=== PATIENT | female | born 1950 | race Caucasian/White ===

== ENCOUNTER → 2019-02-24 10:41 | Outpatient (CLI) | payer MEDICARE, SELFPAY ==
--- NOTE | 2019-02-24 | DI.MRI.S_ITS ---
PROCEDURE: MR KNEE LT WO CON INDICATIONS: Bilateral primary osteoarthritis of knee TECHNIQUE: Noncontrast sagittal PD fast spin echo and T2 fast spin echo with fat saturation, sagittal 3-D FLASH with fat saturation; coronal T1 spin echo and PD fast spin echo with fat saturation, and axial PD fast spin echo with fat saturation through the knee. COMPARISON: [facility] [place], CR, XR KNEE ARTHRITIC SERIES BI, 02/17/2019, 12:59. FINDINGS: Image quality: Excellent. Menisci: There is medial meniscal extrusion. There is severe degenerative tear of the body and posterior horn of the medial meniscus. The lateral meniscus demonstrates normal morphology and internal signal. The meniscal root ligaments appear intact. Cruciate ligaments: There is chronic tear/scarring or mucoid degeneration of anterior cruciate ligament. The posterior cruciate ligament appears intact. Medial structures: The medial collateral ligament appears intact. The semimembranosus tendon insertionsand meniscocapsular junction appear intact. Visualized portions of the pes anserinus tendons appear normal. No abnormal bursal fluid. Lateral structures: The lateral collateral ligament and the biceps femoris tendon appear intact. The popliteus tendon appears normal. Iliotibial band appears normal. Anterior structures: The quadriceps and patellar tendons appear intact. Patellar alignment is normal. No femoral trochlear dysplasia or ventral trochlear prominence. No edema in the infrapatellar fat pad. Bones and cartilage: No bone marrow contusions or fractures. There is severe cartilage thinning with near denuded articular surface in the medial femorotibial compartment. There is mild to moderate cartilage thinning and fibrillation in the lateral femorotibial compartment and patellofemoral compartment. Joint space: There is moderate knee joint fluid. Tiny Atkinson's cyst. Normal appearing synovial plicae are incidentally noted. IMPRESSION: 1. Medial meniscal extrusion with severe degenerative tear of the body and posterior horn. 2. Chronic tear/scarring versus mucoid degeneration of the anterior cruciate ligament. 3. Severe cartilage loss with [id number] articular surface the medial femorotibial compartment. 4. Moderate knee joint effusion. Dictated by: Esdras Jones M.D. on 02/24/2019 at 11:47 Approved by: Esdras Jones M.D. on 02/24/2019 at 11:56
== END ==
PROVIDERS: PCP Physician Assistant Medical; Visit Provider Orthopaedic Surgery
DX: M17.0 Bilateral primary osteoarthritis of knee (principal); M23.222 Derangement of posterior horn of medial meniscus due to old tear or injury, left knee; M23.232 Derangement of other medial meniscus due to old tear or injury, left knee; M25.462 Effusion, left knee
CPT/HCPCS: 73721

== ENCOUNTER 2019-04-01 05:44 | Inpatient (IN) | payer MEDICARE, SELFPAY ==
[2019-03-25 08:48] VITALS: BMI 40.1
[2019-04-01] VITALS (21 sets, daily range): BP systolic 99–138; BP diastolic 54–73; PULSE 60–83; RESP 14–20; TEMP 36.3–37.1; O2SAT 88–98; BMI 40.1
--- NOTE | 2019-04-01 06:50 | DI.RAD.S_ITS ---
PROCEDURE: XR KNEE LT 1TO2V INDICATIONS: post op films TECHNIQUE: 2 view(s) of the knee acquired. COMPARISON: [facility] [place], XR KNEE ARTHRITIC SERIES BI, 02/17/2019, 12:59. [facility] [place], NICOLE, XR BONE LENGTH SCANOGRAM, 02/24/2019, 11:17. [facility], MR, MR KNEE LT WO CON, 02/24/2019, 10:53. FINDINGS: Bones: Patient is status post knee joint arthroplasty. Hardware components are in expected positions. Visualized bony structures are intact. Soft tissues: Overlying postoperative changes are noted. IMPRESSION: Expected post surgical changes. Dictated by: Esdras Jones M.D. on 04/01/2019 at 12:39 Approved by: Esdras Jones M.D. on 04/01/2019 at 12:39
--- NOTE | 2019-04-01 07:23 | PM.PREOP ---
Pre-operative Note Interval Note History & Physical reviewed/Exam performed by Physician: Yes Changes to H&P: No
[2019-04-01] MEDS: diphenhydrAMINE 50 MG/ML VIAL (07:24)
[2019-04-01] MEDS: ACETAMINOPHEN 325 MG TABLET 975 MG PO (07:24)
[2019-04-01] MEDS: CELECOXIB 200 MG CAPSULE PO (07:24)
[2019-04-01] MEDS: VANCOMYCIN 1,000 MG/200 ML PIGGYBACK 200 MG IV (07:24)
[2019-04-01] MEDS: PREGABALIN 75 MG CAPSULE PO (07:24)
--- NOTE | 2019-04-01 07:24 | PM.OP.1 ---
Operative Date/Time/Diagnoses Date of procedure: 04/01/19 Time of procedure: 07:58 Pre-op diagnosis: left knee OA Post-op diagnosis: same Procedure & Clinicians Procedure: Left total knee arthroplasty Same procedure as scheduled: Yes Indications: The patient has had progressively worsening left knee pain with radiographic changes consistent with arthritis. Non-operative management has failed and the patient has requested total knee replacement. The risks, benefits and alternatives to surgery were discussed with the patient prior to proceeding. Risks discussed included, but were not limited to, failure to relieve pain, stiffness, infection, nerve damage, deep venous thrombosis, pulmonary embolism, stroke, coma, heart attack, permanent paralysis and , as well as the potential need for eventual revision of the prosthetic. Surgeon: Dea Laird Sociology Adjunct Instructor: Elieser Jones Anesthesia Type: General Operative Notes Findings: Severe left knee osteoarthritis, good balance, good range of motion Closure Type: primary Specimen(s): none sent Prosthetic devices, grafts, tissues, transplants, or devices: [facility] 2 size 4 femur, size 3 tibia, 35 by 7-1/2 mm patella, +10 poly Applied: drain(s) Estimated Blood Loss (mL): 250 Blood products transfused: none Tourniquet time (min): 76 Procedure in detail: The patient was seen in the pre-operative area, where the patient identified the left knee as the operative site and this was marked with my initials. The patient received pre-operative antibiotics, and was taken to the operating room and placed on the operative table in the supine position. After satisfactory anesthesia, a corporate compliance officer out was performed. The left leg was encircled with a tourniquet about the proximal thigh, and the leg was prepared from the toes to the tourniquet with ChloroPrep in the usual fashion and draped through sterile drapes. The leg was elevated and exsanguinated with Eschmark bandage and the tourniquet inflated to [250] mmHg pressure. The knee was approached through an approximately 18 cm incision centered over the patella and carried into the knee through a medial parapatellar arthrotomy. A portion of the medial and lateral meniscus was resected. Soft tissue was carefully mobilized around the patella the patella was measured with a caliper. Bone was resected from the patella and the patellar height was reconstituted with up an appropriate sized patellar component. A cover was then placed on the patella. A small amount of additional medial and lateral meniscus was resected. The visionare guide fit well to the distal femur. It looked like an appropriate distal femoral cut and the cut was made without difficulty. The rotation was assessed and the appropriate size femoral guide was placed on the distal femur and finishing cuts were made. There was no evidence of notching. The anterior, posterior and chamfer cuts were then made. The posterior osteophytes and soft tissues were then removed. The posterior capsule was injected with part of a mixture of 60 ml 0.25% Marcaine mixed with 20 ml Exparel for post operative pain control. The remainder of this mixture was injected into the capsule and subcutaneous tissues during cement curing. The tibia was prepared and the visionaire guide fit well to the distal tibia. The rotation was assessed. The patient was placed in extension residual medial and lateral meniscus as well as any residual bone was carefully resected. [No] additional tibia was resected. Hemostasis was achieved especially posteriorly. Additional local was injected into the posterior capsule. The extension gap was assessed and additional releases for gap balancing were performed as necessary. The femoral component was trial was placed and the notch was finished. Trial tibial and femoral components were then placed and the knee placed through a range of motion. Range of motion was [0-130], with good stability throughout the range. The trials were then removed, and the tibia was finished. The bone was prepared with pulsatile lavage, and dried with a sponge. Cement was applied and the final prosthetics placed. Excess cement was removed during and after cement curing. A brief Betadine soak was performed. After confirming there was no extruded cement posteriorly, the final tibial insert was placed. The knee was copiously irrigated and the tourniquet deflated. Hemostasis was obtained with the Bovie. A drain was placed and brought out superolaterally. The capsule was closed with interrupted Vicryl suture. The subcutaneous layer was closed with barbed sutures, and the skin with a running 3-0 V-Lock suture and Surgical glue. An Aquacel Ag dressing was applied and the patient was taken to recovery having tolerated the procedure well. Complications: none Post-operative Condition: stable Disposition: Acute Care Plan for aftercare: The patient will be maintained on a standard total knee replacement protocol with weight bearing as tolerated. The patient will receive aspirin and sequential compression devices for DVT prophylaxis. The patient will be discharged home when safe for the home environment.
[2019-04-01] MEDS: CEFAZOLIN 2 GM/100 ML FROZ.PIGGY IV ×2 (07:46→16:05)
[2019-04-01] MEDS: TRANEXAMIC ACID 1,000 MG VIAL 1000 MG INJ ×2 (08:15→09:43)
[2019-04-01] MEDS: BUPIVACAINE LIPOSOME 266 MG/20 ML VIAL INJ (08:29)
--- NOTE | 2019-04-01 08:33 | SUR.OPER ---
Supine on padded OR bed. Pillow under head, arms secured on padded armboards <90 degree abduction. Safety belt across torso. Non-operative leg secured with tape over blanket over lower leg. Operative leg secured in DeMayo positioner. Foam padded brace at thigh of operative leg.
[2019-04-01] MEDS: BUPIVACAINE 0.25% W/ EPI 30 ML VIAL 60 ML INJ (08:39)
--- NOTE | 2019-04-01 08:57 | SUR.OPER ---
Report from OPD RN: patient given benadryl in OPD for side effects of vancomycin. On admission to the OR, plan for spinal aborted due to paradoxical effect of benadryl. Patient demonstrated agitation and reported restless legs with an inablility to control movements. Placed into supine position for general anesthesia. See anesthesia record.
--- NOTE | 2019-04-01 10:28 | SUR.PHASEI ---
Regular Insulin 6 units given SQ @ 1025
[2019-04-01] MEDS: HYDROMORPHONE 2 MG INJ IV ×4 (10:40→10:55)
[2019-04-01] MEDS: INSULIN REGULAR 100 UNIT/ML 3 ML VIAL 6 UNIT SUBCUT (10:57)
--- NOTE | 2019-04-01 11:08 | SUR.PHASEI ---
recheck blood sugar 168
--- NOTE | 2019-04-01 11:39 | CM.DANOTE ---
DCP: Case received, EMR reviewed and met with patient. Patient was still in surgery, already updated white board. Friend, Chloé, was in room waiting for patient, and was able to give this window caserdata operations manager regarding baseline activity level at home prior to surgery. DCP assessment completed with information currently available. Patient is a 68 year old female who admitted early this morning to the care of the orthopedic team. PCP: Dr. Jones. Payer: confirmed: Medicare/[employer]. Patient came to the hospital for a surgical procedure. She had left total knee arthroplasty. Patient is on her way to her room from recovery, but friend, Chloé, was waiting for her in her room. Chloé lives near patient in [place]. Asked her how patient was getting around prior to surgery, and friend mentioned, not very well, she has been using a cane and walker. Patient has been driving, and able to perform her daily functions, as well as meal prep. Confirmed that patient has a sister named Angella who lives in [place]. P: DCP will continue to follow for any needs. The plan at this time is for patient to go home, and her friend, Chloé, will be staying with her post surgery. Will see how patient does with PVerito Bautista RN/Medical Instrument Cable Fabricator
[2019-04-01] MEDS: OXYCODONE IR 5 MG TABLET PO (12:49)
[2019-04-01] MEDS: LACTATED RINGERS 1,000 ML 125 ML IV ×2 (12:50→20:24)
[2019-04-01] MEDS: IBUPROFEN 400 MG TABLET PO ×3 (12:50→20:21)
--- NOTE | 2019-04-01 13:42 | PC.NURSE ---
Addendum entered by Berna Granger R.N. 04/01/19 13:46: Pt also complains of double vision but had not Original Note: Pt to room 215 via bed from PACU. Pt is awake and oriented x 3. Pt oriented to bed controls, tv controls, call light. SCD's on and runnning. Bed alarm on for safety. Pt has eaten lunch and was up to bsc to attempt void. IV infusing as ordered. CLamp to HV unclamped as ordered. Pt had a reaction to meds intraoperatively and was given Benadryl which she also reacted to. Pt has pink eyes and periorbital edema and complains of itching to eyes and nose. Pt denies further needs at this time and agrees to call for assistance as needed.
[2019-04-01] MEDS: BENZOCAINE/MENTHOL 1 LOZ PKT 1 EACH PO (14:37)
--- NOTE | 2019-04-01 15:34 | PT.IIE ---
Current Diagnoses Unilateral primary osteoarthritis, left knee (04/01/19) Surgery Performed Operation Date: 04/01/19 07:45 Actual Procedures p Total Knee Arthroplasty(Left) - Dea Laird MD Surgical History (Last Updated 03/25/19 @ 09:15 by Rhea Miranda RN) History of ankle surgery (Acute ~2009) History of hysterectomy (Acute) Hx of bilateral cataract extraction (Acute ~2018) Hx of LASIK (Acute ~1997) Medical History (Last Updated 03/25/19 @ 09:15 by Rhea Miranda RN) Depression (Acute) Fibromyalgia (Acute) HTN (hypertension) (Acute) Neck pain (Acute) Neuropathy (Acute) Osteoarthritis (Acute) Pedal edema (Acute) Pre-diabetes (Acute) RLS (restless legs syndrome) (Acute) Physical Therapy Inpatient Evaluation/Re-Eval M1 PT/OT-IP Prior Functional Status Start: 04/01/19 16:56 Freq: NEEDED Status: Active Protocol: Document 04/01/19 15:34 AB (Rec: 04/01/19 17:11 AB [id number]) Medical Review Prior Functional Status Medical History Reviewed Yes Communication able to make needs known Mobility and Gait pt stated that she is modified independent with all mobilities and ambulation using 4WW indoors but uses her walking stick for outdoor mobility Social History Household Members none Living Arrangements House Number of Floors (Floors) One Floor Number of Stairs To Enter/Railing? 2 steps to enter withotu rails Home Environment Standard Height Toilet,Walk in Shower,Built-In Shower Seat Home Equipment Front Wheel Walker,Four Wheel Walker,Straight Cane,Bedside Commode,Hand Held Shower Additional Social History Comment pt plans to go home and friend Aníbal will stay with her to assist until Friday; after that , pt will have friends assist her as needed pt has 2 walking sticks pt will also have L side bed cane put on; stated that she has a high bed and uses a stool to get up to the bed. pt has not set up for outpt PT yet and stated that her friend aníbal is trying to make appointments for that. M2 PT-IP Current Condition Start: 04/01/19 16:56 Freq: NEEDED Status: Active Protocol: Document 04/01/19 15:34 AB (Rec: 04/01/19 17:11 AB [id number]) Physical Therapy Current Condition Current Condition Evaluation Date 04/01/19 Treatment Diagnosis s/p L TKA; difficulty in walking Onset Date 04/01/2019 Weight Bearing Status Weight Bearing Status Weight Bear as Tolerated Allowed Weight Bearing Amount (enter % WBAT LLE or #) (%) M3 PT-IP Subjective Start: 04/01/19 16:56 Freq: NEEDED Status: Active Protocol: Document 04/01/19 15:34 AB (Rec: 04/01/19 17:11 AB [id number]) Subjective Physical Therapy Visit Type Type Initial Evaluation Visit Start Time 15:34 Visit Stop Time 16:23 Total Visit Minutes 49 Number of FACTORY HAND Visits 0 Physical Therapy Visit Comments Patient Comments agreeable to do PT; pt a little drowsy requiring cues to stay awake but agreed to do PT and requested to use the toilet Therapy Pain Assessment Pain When Pain Assessed During Mobility Pain Present Pain Present Pain Reported Location Left Knee Intensity 4 Scale Used Numeric (1 - 10) Pain Management Techniques Apply Cold,Distraction,Re- positioning,Timing of Activity with Medications M4 PT-IP Mobility and Gait Start: 04/01/19 16:56 Freq: NEEDED Status: Active Protocol: Document 04/01/19 15:34 AB (Rec: 04/01/19 17:11 AB [id number]) PT-Bed Mobility Assessment Supine to Sit Supine to Sit Minimal Assistance Sit to Supine Sit to Supine Standby Assistance Scooting Scooting to Edge of Bed Standby Assistance PT-Transfer Assessment Sit to and From Stand Sit to and from Stand Minimal Assistance,1 Person Assistance,Use of Upper Extremities Equipment Transfer Assistive Device Gait Belt,Front Wheeled Walker Orthotic/Prosthetic Devices or Brace: No Transfers Transfer Destination Toilet Transfer Technique ambulated using FWW Transfer Ability Level of Assist Minimal Assistance,1 Person Assistance,Use of Upper Extremities Comments Mobility Comments pt required min A for sit to supine requiring 2 attempts to complete task. requires cues for techniques. completed sit to stand mn A and cues. ambulated to the toilet using FWW min A ~ 15 ft. required CGA to maintain standing balance using FWW while pt completes hygiene care. pt ambulated back to her bed using FWW min A and cues. positioned in bed. call light and table placed within reach . nurse in room with pt. pt can be impulsive and educated on safety and to slow down. Gait Assessment Gait Gait Assistance Required: Minimum Assistance Distance (Feet) 15 Able to Maintain Weight Bearing Status Yes During Gait Assistive Devices Assistive Device Gait Belt,Front Wheeled Walker Orthotic/Prosthetic Devices or Brace: No Gait Deviations General Gait Pattern Antalgic,Decreased Stride Length,Decreased Feet Clearance,Step-to Gait Factors Limiting Gait Function Factors Limiting Gait Function Decreased Activity Tolerance, Decreased Strength,Difficulty Following Directions,Limited Range of Motion,Pain,Poor Balance,Poor Safety Awareness Comments Gait Comments completed ambulation using FWW 15 ft x 2 min A and cues. PT-Balance Assessment Sitting Balance and Reactions Static Sitting Balance Ability Good Dynamic Sitting Balance Ability Good Standing Balance and Reactions Static Standing Balance Ability Fair Dynamic Standing Balance Ability Fair Device Used FWW M5 PT-IP Objective Assessments Start: 04/01/19 16:56 Freq: NEEDED Status: Active Protocol: Document 04/01/19 15:34 AB (Rec: 04/01/19 17:11 [id number]) Orientation Orientation/Cognition Level of Alertness Alert Orientation Name,Place,Situation Safety Awareness Decreased Safety Awareness Memory Description Short Term Impaired Gross Range of Motion Lower Extremity ROM Impairments L knee flexion ~ 100 deg Strength Lower Extremity Strength Assessment Left Impaired Hip 4-/5 Knee 3+/5 Sensation Assessment Sensation Gross Sensation WNL Muscle Tone Muscle Tone WNL Yes Other Assessments Other Other Assessments pt c/o double vision: stated that she has a bad reaction to vancomyacin and benadryl and and the double vision as the side effect. M6 PT-IP Treatment Start: 04/01/19 16:56 Freq: NEEDED Status: Active Protocol: Document 04/01/19 15:34 AB (Rec: 04/01/19 17:11 [id number]) Physical Therapy Treatment Exercises Exercises Quad Sets,Heel Slides Education Education Provided Precautions,Weight Bearing Status,Post-Op Packet,Safety M7 PT-IP Assessment and Plan Start: 04/01/19 16:56 Freq: NEEDED Status: Active Protocol: Document 04/01/19 15:34 AB (Rec: 04/01/19 17:11 [id number]) PT Summary Assessment and Plan Potential Rehabilitation Potential Good Status of Condition at Evaluation Stable Summary Impairments Pain,ROM,Strength,Balance, Coordination,Sensation,Tone, Cognition,Bed Mobility, Transfers,Gait,Activity Tolerance Assessment Summary pt requiring min A with mobility and can be impulsive. pt plans to go home and her friend will assist her. pt stated that her friend is a retired nurse and will know how to assist. will conduct caregiver training and stair traiing when appropriate. Goals Bed Mobility Goal Standby Assistance Transfer Goal Standby Assistance,Front Wheeled Walker Gait Goal Standby Assistance,Front Wheel Walker Gait Distance 150 Other Goals up/down 2 steps without rails using SPC/MECHANICAL REPAIR WORKER min A and cues. Days to Meet Goals 10 Frequency of Treatment Frequency Of Treatment Twice a Day Treatment Plan Physical Therapy Treatment Plan Bed Mobility Training,Transfer Training,Gait Training, Therapeutic Exercise,Balance Retraining,Post Op Education, Discharge Planning,Hot or Cold Pack,Neuromuscular Re-ed, Coordination Retraining,Manual Therapy Other Recommendations and Next Treatment ambulation, caregiver training Focus , stair training Recommendations To Nursing Amount of Assist Needed 1 Person Assist Discharge Recommendations PT Discharge Recommendations Home with 24/7 Assist,Home Health,Outpatient PT Other Discharge Recommendations depending on progress: home with 24/7 with homehealth to start and then outpt PT. Transportation Needs at Discharge Private Vehicle
[2019-04-01] MEDS: ACETAMINOPHEN 325 MG TABLET 650 MG PO ×2 (16:05→20:21)
--- NOTE | 2019-04-01 17:45 | PC.NURSE ---
Chani shift note: Patient awake, alert, and pleasant. Up out of bed to BR with PT, 1PA FWW. CMS to LLE intact. Aquacel, CDI secured with Brian wrap. Dr. Laird at bedside for evaluation regarding previous reaction to Vancomycin and Benadryl. Reports improvement to pruritis to face and redness. No noted hives, mild redness to cheeks bilaterally, and states pruritis is resolving. No double vision. Voided.
[2019-04-01] MEDS: ASPIRIN EC 81 MG TABLET PO (20:21)
[2019-04-01] MEDS: DOCUSATE 100 MG CAPSULE PO (20:21)
[2019-04-02] MEDS: CEFAZOLIN 2 GM/100 ML FROZ.PIGGY IV (00:25)
[2019-04-02] MEDS: IBUPROFEN 400 MG TABLET PO ×3 (00:25→08:44)
[2019-04-02 00:30] VITALS: BP 130/60; PULSE 72; RESP 18; TEMP 37.2; O2SAT 97
[2019-04-02] MEDS: OXYCODONE IR 5 MG TABLET PO ×3 (04:33→14:48)
[2019-04-02 07:07] LABS: Hematocrit 29.8 % (36-46); Hemoglobin 9.9 g/dL (12.0-16.0)
--- NOTE | 2019-04-02 07:16 | PM.PN.1 ---
Subjective Subjective Date Patient Seen: 04/02/19 Time Patient Seen: 07:16 Interval history: Patient is POD#1 s/p left TKA with Dr. Laird. She had an allergic reaction to Vancomycin and Benadryl yesterday resulting in facial swelling and severe itching. This has improved today.Pain mild to moderate and well controlled. She has mobilized with PT. Voiding appropriately. No nausea or vomiting. Exam Vital Signs (past 8 hours): - 04/02/19 00:30 Temperature 98.9 F Pulse Rate 72 Respiratory Rate 18 Blood Pressure 130/60 Pulse Oximetry 97 Oxygen Delivery Method Room Air Oxygen Flow Rate 0 Narrative Exam Narrative: 68 year old female resting in bed, alert and oriented in no acute distress. Aquacel dressing in place CDI with minimal shadow drainage. Patient able to flex and extend the ankle. Palpable pedal pulse. Calves soft and compressible. Objective Labs Result Diagrams: 04/02/19 06:45 Labs: Laboratory Results - last 24 hr 04/02/19 06:45 Hgb 9.9 L Hct 29.8 L Assessment & Plan Assessment & Plan narrative: Patient progressing well postoperatively. 95cc out from drain last night, will d/c this closer to discharge. Continue to mobilize with PT. Discussed with patient she should hold off on Vistaril given preop due to her reaction to benadryl. Likely discharge to home later today pending PT. Quality VTE Deep Vein Thrombosis/Pulmonary Embolism Present on Admission: No
[2019-04-02 07:18] VITALS: BP 134/59; PULSE 66; RESP 16; TEMP 36.1; O2SAT 99
[2019-04-02 08:41] VITALS: BP 134/59
[2019-04-02] MEDS: lisinopriL 20 MG TABLET PO (08:41)
[2019-04-02] MEDS: ASPIRIN EC 81 MG TABLET PO (08:43)
[2019-04-02] MEDS: FLUoxetine 20 MG CAPSULE 40 MG PO (08:43)
[2019-04-02] MEDS: hydroCHLOROthiazide 25 MG TABLET PO (08:43)
[2019-04-02] MEDS: DULOXETINE 30 MG CAPSULE PO (08:43)
[2019-04-02] MEDS: DOCUSATE 100 MG CAPSULE PO (08:43)
[2019-04-02] MEDS: ACETAMINOPHEN 325 MG TABLET 650 MG PO ×2 (08:44→14:49)
[2019-04-02] MEDS: GLIMEPIRIDE 2 MG TABLET 1 MG PO (08:45)
--- NOTE | 2019-04-02 09:46 | PT.IPTN ---
Current Diagnoses Unilateral primary osteoarthritis, left knee (04/01/19) Surgery Performed Operation Date: 04/01/19 07:45 Actual Procedures p Total Knee Arthroplasty(Left) - Dea Laird MD Physical Therapy Treatment Note M2 PT-IP Current Condition Start: 04/01/19 16:56 Freq: NEEDED Status: Active Protocol: Document 04/01/19 15:34 AB (Rec: 04/01/19 17:11 AB [id number]) Physical Therapy Current Condition Current Condition Evaluation Date 04/01/19 Treatment Diagnosis s/p L TKA; difficulty in walking Onset Date 04/01/2019 Weight Bearing Status Weight Bearing Status Weight Bear as Tolerated Allowed Weight Bearing Amount (enter % WBAT LLE or #) (%) M3 PT-IP Subjective Start: 04/01/19 16:56 Freq: NEEDED Status: Active Protocol: Document 04/02/19 09:46 AB (Rec: 04/02/19 11:00 AB [id number]) Subjective Physical Therapy Visit Type Type Treatment Note Visit Start Time 09:46 Visit Stop Time 10:28 Total Visit Minutes 42 Number of PIPELINE MAINTENANCE SUPERVISOR Visits 0 Physical Therapy Visit Comments Patient Comments pt agreeable to do PT Therapy Pain Assessment Pain When Pain Assessed At Rest Pain Present Pain Present Pain Reported Location Left Knee Intensity 5 Scale Used Numeric (1 - 10) Pain Management Techniques Re-positioning,Timing of Activity with Medications M4 PT-IP Mobility and Gait Start: 04/01/19 16:56 Freq: NEEDED Status: Active Protocol: Document 04/02/19 09:46 AB (Rec: 04/02/19 11:00 AB [id number]) PT-Bed Mobility Assessment Supine to Sit Supine to Sit Standby Assistance Sit to Supine Sit to Supine Standby Assistance Scooting Scooting to Edge of Bed Standby Assistance PT-Transfer Assessment Sit to and From Stand Sit to and from Stand Standby Assistance,Contact Guard Assistance,1 Person Assistance,Use of Upper Extremities Equipment Transfer Assistive Device Gait Belt,Front Wheeled Walker Orthotic/Prosthetic Devices or Brace: No Transfers Transfer Destination Toilet Transfer Technique ambulated using FWW Transfer Ability Level of Assist Standby Assistance,Contact Guard Assistance,1 Person Assistance,Use of Upper Extremities Comments Mobility Comments pt completed supine to sit SBA , sit to stand x 2 attempts CGA and cued for techniques. pt ambulated using fWW to the toilet SBA to CGA. was able to ambulated out of the toilet using FWW towards the sink SBA. completed up step stool using FWW CGA and cues to get into the bed. pt has a high bed at home and uses a foot stool. pt ambulated in the hallway ~ 100 ft SBA. complete stairs and assisted back to her room. requested to go back to bed. completed sit to supine SBA. call light and table placed within reach. Gait Assessment Gait Gait Assistance Required: Standby Assistance Distance (Feet) 100 Able to Maintain Weight Bearing Status Yes During Gait Assistive Devices Assistive Device Gait Belt,Front Wheeled Walker Orthotic/Prosthetic Devices or Brace: No Gait Deviations General Gait Pattern Decreased Stride Length, Decreased Feet Clearance Factors Limiting Gait Function Factors Limiting Gait Function Decreased Activity Tolerance, Decreased Strength,Limited Range of Motion,Pain,Poor Balance,Poor Safety Awareness Stair Climbing Assessment Evaluation Level of Assist On Stairs Moderate Assistance,Maximal Assistance,1 Person Assistance Devices Stair Climbing Assistive Devices Straight Cane,Left Railing Technique/Endurance Stair Climbing Direction Ascend and Descend Stair Climbing Technique Step to Step Number of Steps Climbed 3 Stair Climbing Set # Repetitions (reps) 1 Comments Stair Climbing Comments educated on how to use SPC for stair climbing. completed up /down step stool using SPC and MEDIA MARKETING COORDINATOR mod to max A and cues. during eval, pt stated that she does not have rails at home but today stated that she has a ledge on the sides of the door wall for support. completed up/down steps using SPC/MEDIA MARKETING COORDINATOR/ L rail mod to max A and max cues. informed pt regarding caregiver training and pt agreed. M5 PT-IP Objective Assessments Start: 04/01/19 16:56 Freq: NEEDED Status: Active Protocol: Document 04/01/19 15:34 AB (Rec: 04/01/19 17:11 AB [id number]) Orientation Orientation/Cognition Level of Alertness Alert Orientation Name,Place,Situation Safety Awareness Decreased Safety Awareness Memory Description Short Term Impaired Gross Range of Motion Lower Extremity ROM Impairments L knee flexion ~ 100 deg Strength Lower Extremity Strength Assessment Left Impaired Hip 4-/5 Knee 3+/5 Sensation Assessment Sensation Gross Sensation WNL Muscle Tone Muscle Tone WNL Yes Other Assessments Other Other Assessments pt c/o double vision: stated that she has a bad reaction to vancomyacin and benadryl and and the double vision as the side effect. M6 PT-IP Treatment Start: 04/01/19 16:56 Freq: NEEDED Status: Active Protocol: Document 04/02/19 09:46 AB (Rec: 04/02/19 11:00 AB [id number]) Physical Therapy Treatment Education Education Provided Safety M7 PT-IP Assessment and Plan Start: 04/01/19 16:56 Freq: NEEDED Status: Active Protocol: Document 04/02/19 09:46 AB (Rec: 04/02/19 11:00 AB [id number]) PT Summary Assessment and Plan Potential Rehabilitation Potential Good Summary Impairments Pain,ROM,Strength,Balance, Cognition,Bed Mobility, Transfers,Gait,Activity Tolerance Progress Towards Goals Progressing Toward Goals Assessment Summary pt requiring SBA to CGA with transfers and ambulation using FWW but requires mod to max A for stair climbing. caregiver training will be conducted prior to d/c and if caregiver can assist pt safely, pt may go home when medically stable. Goals Bed Mobility Goal Standby Assistance Transfer Goal Standby Assistance,Front Wheeled Walker Gait Goal Standby Assistance,Front Wheel Walker Gait Distance 150 Other Goals up/down 2 steps without rails using SPC/MEDIA MARKETING COORDINATOR min A and cues. Days to Meet Goals 10 Frequency of Treatment Frequency Of Treatment Twice a Day Treatment Plan Physical Therapy Treatment Plan Bed Mobility Training,Transfer Training,Gait Training, Therapeutic Exercise,Balance Retraining,Post Op Education, Discharge Planning,Hot or Cold Pack,Neuromuscular Re-ed, Coordination Retraining,Manual Therapy Other Recommendations and Next Treatment ambulation, caregiver training Focus , stair training Recommendations To Nursing Amount of Assist Needed 1 Person Assist Discharge Recommendations PT Discharge Recommendations Home with Assistance, Outpatient PT Transportation Needs at Discharge Private Vehicle
--- NOTE | 2019-04-02 12:10 | CM.DPC ---
DCP: continued: case received, EMR reviewed and see that ortho PA Petra has ok'd pt for d/c to home setting today if she does well with PT. Met now with pt and her friend Chloé who will be staying with pt to help her out as she recovers. Both say they are feeling confident re the d/c to home plan for today and that the only piece they are concerned about is getting into the home (2 steps to entry.) PT Funmilayo is planning to work with both of them on this early this afternoon. P: home, likely today, when cleared by PT.
--- NOTE | 2019-04-02 14:00 | PT.IPTN ---
Current Diagnoses Unilateral primary osteoarthritis, left knee (04/01/19) Surgery Performed Operation Date: 04/01/19 07:45 Actual Procedures p Total Knee Arthroplasty(Left) - Dea Laird MD Physical Therapy Treatment Note M2 PT-IP Current Condition Start: 04/01/19 16:56 Freq: NEEDED Status: Discharge Protocol: Document 04/01/19 15:34 AB (Rec: 04/01/19 17:11 AB [id number]) Physical Therapy Current Condition Current Condition Evaluation Date 04/01/19 Treatment Diagnosis s/p L TKA; difficulty in walking Onset Date 04/01/2019 Weight Bearing Status Weight Bearing Status Weight Bear as Tolerated Allowed Weight Bearing Amount (enter % WBAT LLE or #) (%) M3 PT-IP Subjective Start: 04/01/19 16:56 Freq: NEEDED Status: Discharge Protocol: Document 04/02/19 14:00 AB (Rec: 04/02/19 16:23 AB [id number]) Subjective Physical Therapy Visit Type Type Treatment Note Visit Start Time 14:00 Visit Stop Time 14:40 Total Visit Minutes 40 Number of COMMERCIAL REAL ESTATE UNDERWRITER Visits 0 Physical Therapy Visit Comments Patient Comments pt agreeable to do PT; friend present for caregiver training Therapy Pain Assessment Pain When Pain Assessed At Rest Pain Present Pain Present Pain Reported Location Left Knee Intensity 3 Scale Used Numeric (1 - 10) Pain Management Techniques Re-positioning,Timing of Activity with Medications M4 PT-IP Mobility and Gait Start: 04/01/19 16:56 Freq: NEEDED Status: Discharge Protocol: Document 04/02/19 14:00 AB (Rec: 04/02/19 16:23 AB [id number]) PT-Bed Mobility Assessment Supine to Sit Supine to Sit Standby Assistance Sit to Supine Sit to Supine Standby Assistance Scooting Scooting to Edge of Bed Standby Assistance PT-Transfer Assessment Sit to and From Stand Sit to and from Stand Standby Assistance,Contact Guard Assistance,1 Person Assistance,Use of Upper Extremities Equipment Transfer Assistive Device Gait Belt,Front Wheeled Walker Orthotic/Prosthetic Devices or Brace: No Transfers Transfer Technique ambulated using FWW Transfer Ability Level of Assist Standby Assistance,Contact Guard Assistance,1 Person Assistance,Use of Upper Extremities Comments Mobility Comments caregiver training conducted. educated caregiver on how to use safety belt and how to assist pt. pt completed supine to sit SBA. caregiver was able to put safety belt on and assist pt with sit to stand and ambulation in room using FWW SBA to CGA. pt ambulated in the hallway using FWW SBA to CGA ~ 125 ft. completed stair climbing. ambulated back towards the room using FWW SBA to CGA ~ 100 ft. pt sat on the chair. NAC assist pt with dressing needs. Gait Assessment Gait Gait Assistance Required: Standby Assistance,Contact Guard Assist Distance (Feet) 125 Able to Maintain Weight Bearing Status Yes During Gait Assistive Devices Assistive Device Gait Belt,Front Wheeled Walker Gait Deviations General Gait Pattern Antalgic,Decreased Stride Length,Decreased Feet Clearance Factors Limiting Gait Function Factors Limiting Gait Function Decreased Activity Tolerance, Decreased Strength,Limited Range of Motion,Pain,Poor Balance,Poor Safety Awareness Comments Gait Comments ambulated using FWW 125+100+30 +20 ft using FWW SBA to CGA Stair Climbing Assessment Evaluation Level of Assist On Stairs Moderate Assistance,1 Person Assistance Devices Stair Climbing Assistive Devices Straight Cane,Right Railing Technique/Endurance Stair Climbing Direction Ascend and Descend Stair Climbing Technique Step to Step Number of Steps Climbed 3 Stair Climbing Set # Repetitions (reps) 1 Comments Stair Climbing Comments educated caregiver on how to assist pt with stairs. pt completed with caregiver assisting and completed safely . M5 PT-IP Objective Assessments Start: 04/01/19 16:56 Freq: NEEDED Status: Discharge Protocol: Document 04/01/19 15:34 AB (Rec: 04/01/19 17:11 AB [id number]) Orientation Orientation/Cognition Level of Alertness Alert Orientation Name,Place,Situation Safety Awareness Decreased Safety Awareness Memory Description Short Term Impaired Gross Range of Motion Lower Extremity ROM Impairments L knee flexion ~ 100 deg Strength Lower Extremity Strength Assessment Left Impaired Hip 4-/5 Knee 3+/5 Sensation Assessment Sensation Gross Sensation WNL Muscle Tone Muscle Tone WNL Yes Other Assessments Other Other Assessments pt c/o double vision: stated that she has a bad reaction to vancomyacin and benadryl and and the double vision as the side effect. M6 PT-IP Treatment Start: 04/01/19 16:56 Freq: NEEDED Status: Discharge Protocol: Document 04/02/19 14:00 AB (Rec: 04/02/19 16:23 AB [id number]) Physical Therapy Treatment Education Education Provided Weight Bearing Status,Safety M7 PT-IP Assessment and Plan Start: 04/01/19 16:56 Freq: NEEDED Status: Discharge Protocol: Document 04/02/19 14:00 AB (Rec: 04/02/19 16:23 AB [id number]) PT Summary Assessment and Plan Potential Rehabilitation Potential Good Summary Impairments Pain,ROM,Strength,Balance, Coordination,Sensation,Tone, Cognition,Bed Mobility, Transfers,Gait,Activity Tolerance Progress Towards Goals Progressing Toward Goals Assessment Summary caregiver training conducted and caregiver was able to safely assist pt with mobility . pt plans to go home today with assist from her friend. Goals Bed Mobility Goal Standby Assistance Transfer Goal Standby Assistance,Front Wheeled Walker Gait Goal Standby Assistance,Front Wheel Walker Gait Distance 150 Other Goals up/down 2 steps without rails using SPC/[employer] min A and cues. Days to Meet Goals 10 Frequency of Treatment Frequency Of Treatment Twice a Day Treatment Plan Physical Therapy Treatment Plan Bed Mobility Training,Transfer Training,Gait Training, Therapeutic Exercise,Balance Retraining,Post Op Education, Discharge Planning,Hot or Cold Pack,Neuromuscular Re-ed, Coordination Retraining,Manual Therapy Other Recommendations and Next Treatment ambulation, caregiver training Focus , stair training Recommendations To Nursing Amount of Assist Needed 1 Person Assist Discharge Recommendations PT Discharge Recommendations Home with Assistance, Outpatient PT Transportation Needs at Discharge Private Vehicle
--- NOTE | 2019-04-02 14:57 | DIET.PN ---
Dietary Progress Note Assessment: Ms. Diez is a 68 yof with hx of type 2 diabetes. She reports dx of pre-diabetes. She has had no prior diabetes education. HT: 160.02cm WT: 102.96kg BMI: 40.2 Labs: A1c: 6.6 MNA: 11 [place]: 20 Nutrition Diagnosis: Altered Nutrition related labs related to impaired glucose metabolism, lack of previous exposure to accurate nutrition information as evidenced by pt report, dx of diabetes, previous diet high in refined carbohydrates.? Interventions: 1. Provided handouts on the effect of carbohydrates/protein/fat on blood sugar control.? Stressed importance of consistent carbohydrate intake at each meal and provided instructions for recommended servings/portions of carbohydrates/protein per meal. 2. Reviewed carbohydrate counting and measuring carbohydrate content via serving sizes and reading nutrition labels.? Provided handouts.?? 3. Provided information on the importance of meal timing and not going >4-5 hours between meals. 4. Provided brochure and information on [facility] outpatient diabetes education program. Diet Order: CCD EER: 2-3 carb (30-45 g) per meal ; 1 carb (15g) with snacks Monitoring/Evaluations: wt, po's, POC BG
--- NOTE | 2019-04-02 15:09 | PC.NURSE ---
Pt is dressed and ready for discharge home with Friend. Went over d/c instructions, discussed d/c meds, time of last dose, reviewed diet, stroke education, s/s of infection and when to call MD. Reminded Pt not to drive while on narcotics and to drink plenty of fluids to prevent constipation or dehydration. Pt out via w/c by RN with Friend and all belongings.
== END 2019-04-02 15:12 | disposition home or self-care (01) | DRG 470 ==
PROVIDERS: Admitting Provider Orthopaedic Surgery; PCP Physician Assistant Medical; Referring Provider Orthopaedic Surgery; Visit Provider Orthopaedic Surgery
PROC: 0SRD0JZ Replacement of Left Knee Joint with Synthetic Substitute, Open Approach (ICD-10-PCS; CPT 27447; principal; 2019-04-01 07:45)
DX: M17.12 Unilateral primary osteoarthritis, left knee (principal); Z68.41 Body mass index [BMI] 40.0-44.9, adult; I10 Essential (primary) hypertension; E11.9 Type 2 diabetes mellitus without complications; E66.9 Obesity, unspecified; M79.7 Fibromyalgia; F32.9 Major depressive disorder, single episode, unspecified; T36.8X5A Adverse effect of other systemic antibiotics, initial encounter; T45.0X5A Adverse effect of antiallergic and antiemetic drugs, initial encounter; Y92.239 Unspecified place in hospital as the place of occurrence of the external cause; L29.9 Pruritus, unspecified; T78.3XXA Angioneurotic edema, initial encounter; Z87.891 Personal history of nicotine dependence
CPT/HCPCS: 36415; 73560; 85014; 85018; 97116; 97161; 97530; C1776; C9290; J0360; J0690; J1170; J1200; J2250; J2704; J3010

== ENCOUNTER → 2019-06-22 13:13 | Outpatient (CLI) | payer MEDICARE, SELFPAY ==
[2019-04-01 13:20] VITALS: BMI 40.1
--- NOTE | 2019-06-22 | DI.MRI.S_ITS ---
PROCEDURE: MR KNEE RT WO CON INDICATIONS: Unilateral primary osteoarthritis, right knee TECHNIQUE: Noncontrast sagittal PD fast spin echo and T2 fast spin echo with fat saturation, sagittal 3-D FLASH with fat saturation; coronal T1 spin echo and PD fast spin echo with fat saturation, and axial PD fast spin echo with fat saturation through the knee. COMPARISON: [facility], MR, MR KNEE LT WO CON, 02/24/2019, 10:53. FINDINGS: Image quality: Diagnostic. Bones and joint: There is no acute fracture or dislocation. No suspicious osseous lesions are evident. There is a moderate-sized knee joint effusion with an associated large septated Atkinson's cyst. Mild edema about the Atkinson's cyst is identified. There are intra-articular joint bodies within the knee joint with the largest located along the posterior aspect of the femoral notch, measuring up to approximately 11 x 7 mm (image 22, series 5). There may be additional smaller intra-articular joint bodies. Moderate tricompartmental degenerative changes of the knee are identified, which are most pronounced within the medial compartment with large chronic appearing full thickness defects of the hyaline articular cartilage and marginal osteophytes. Areas of degenerative/reactive marrow change are evident along the periphery of the medial tibial plateau. There also are areas of mild degenerative cystic change within the region of the tibial spines. There is mild irregularity of the head and articular cartilage within the lateral tibiofemoral compartment. The hyaline articular cartilage within the patellofemoral compartment demonstrate small defects within the region of the trochlear groove. Cruciate ligaments: There is at least high-grade partial-thickness tearing involving the anterior cruciate ligament. An irregular full-thickness tear may be present. The posterior cruciate ligament is intact. Menisci: There is a complex tear involving the body of the medial meniscus with moderate associated meniscal extrusion. Partial-thickness tearing extends along the posterior horn of the medial meniscus to the posterior meniscal root with corresponding partial-thickness tearing. The degree of tearing involving the medial meniscus has progressed in the interim. Globular increased signal involving the lateral meniscal body is identified without a definite tear evident. However, there may be low-grade partial-thickness tearing involving the anterior attachment of the lateral meniscus. Medial structures: The medial collateral ligament is thickened and demonstrates surrounding increased signal. The semimembranosus tendon insertion is thickened and mildly edematous, but intact. The imaged portions of the pes anserinus tendons are unremarkable. A small amount of fluid is contained within the pes anserinus bursa. Lateral structures: The popliteal tendon is intact. The lateral collateral ligament proper (fibular collateral ligament) and the proximal tibiofibular ligaments are intact. The distal aspect of the biceps femoris tendon and the iliotibial band are intact. Anterior structures: The quadriceps and patellar tendons are intact. There is mild edema in the infrapatellar fat pad. There is also increased signal/edema within the prepatellar soft tissues. IMPRESSION: 1. Moderate tricompartmental degenerative changes of the knee are most pronounced within the medial compartment, which have progressed in the interim. 2. Complex medial meniscal tear has also slightly progressed in the interim and predominantly is chronic/degenerative. 3. Medial collateral ligament scarring versus sprain. 4. There is at least a chronic high-grade partial-thickness tear of the anterior cruciate ligament. An irregular full-thickness tear may be present. 5. Low-grade partial-thickness tear involving the anterior attachment of the lateral meniscus with additional mucoid degeneration. No displaced lateral meniscal tears. 6. Moderate-sized knee joint effusion with an associated large (probable leaking) Atkinson's cyst and multiple intra-articular joint bodies. 7. Distal semimembranosus tendinopathy. 8. Fluid within the pes anserinus bursa. Please correlate clinically to exclude bursitis. Dictated by: John Echols M.D. on 06/22/2019 at 15:55 Approved by: John Echols M.D. on 06/22/2019 at 16:06
== END ==
PROVIDERS: PCP Physician Assistant Medical; Referring Provider Orthopaedic Surgery; Visit Provider Orthopaedic Surgery
DX: M17.11 Unilateral primary osteoarthritis, right knee (principal); S83.231A Complex tear of medial meniscus, current injury, right knee, initial encounter; S83.511A Sprain of anterior cruciate ligament of right knee, initial encounter; M71.21 Synovial cyst of popliteal space [Baker], right knee; M25.461 Effusion, right knee
CPT/HCPCS: 73721

== ENCOUNTER → 2019-08-02 10:31 | Outpatient (CLI) | payer MEDICARE, SELFPAY ==
[2019-04-01 13:20] VITALS: BMI 40.1
[2019-08-03 19:43] LABS: COVID19 Sendout Not Detected (Not Detect)
== END ==
PROVIDERS: PCP Physician Assistant Medical; Visit Provider Nurse Practitioner
DX: Z01.812 Encounter for preprocedural laboratory examination (principal)
CPT/HCPCS: 87635

== ENCOUNTER 2019-08-05 09:05 | Day surgery (SDC) | payer MEDICARE, SELFPAY ==
[2019-04-01 13:20] VITALS: BMI 40.1
[2019-08-03 09:55] VITALS: BMI 38.6
[2019-08-05] VITALS (15 sets, daily range): BP systolic 86–157; BP diastolic 43–76; PULSE 58–75; RESP 14–21; TEMP 36.2–37.2; O2SAT 96–100; BMI 38.6
--- NOTE | 2019-08-05 09:16 | DI.RAD.S_ITS ---
PROCEDURE: XR KNEE RT 1TO2V INDICATIONS: TKA TECHNIQUE: Two views of the right knee COMPARISON: [facility], CR, XR KNEE LT 1TO2V, 04/01/2019, 10:20. FINDINGS: Status post right total arthroplasty with patellar resurfacing. There is small volume error within the joint as well as a joint effusion and a surgical drain. IMPRESSION: Status post total knee arthroplasty without acute complicating postoperative feature. Dictated by: Kenyon Rod M.D. on 08/05/2019 at 13:36 Approved by: Kenyon Rod M.D. on 08/05/2019 at 13:37
[2019-08-05] MEDS: LACTATED RINGERS 1,000 ML 42 ML IV ×2 (09:27→11:59)
[2019-08-05] MEDS: PREGABALIN 75 MG CAPSULE PO (09:29)
[2019-08-05] MEDS: CELECOXIB 200 MG CAPSULE PO (09:29)
[2019-08-05] MEDS: ACETAMINOPHEN 325 MG TABLET 975 MG PO (09:29)
--- NOTE | 2019-08-05 10:17 | PM.HP.1 ---
History of Present Illness History of Present Illness Date Patient Seen: 08/05/19 Time Patient Seen: 10:17 Chief complaint: *[id number] Narrative: This is a 69-year-old female with severe right knee osteoarthritis. She has a history of a recent left total knee arthroplasty. She notes incapacitating right knee pain. Patient History Medical History Depression (Acute) Fibromyalgia (Acute) HTN (hypertension) (Acute) Neck pain (Acute) Neuropathy (Acute) Osteoarthritis (Acute) Pedal edema (Acute) Pre-diabetes (Acute) RLS (restless legs syndrome) (Acute) Surgical History H/O tooth extraction (Acute 07/2019) History of ankle surgery (Acute ~2009) History of arthroplasty of left knee (Acute 04/01/19) History of hysterectomy (Acute) Hx of bilateral cataract extraction (Acute ~2018) Hx of LASIK (Acute ~1997) Family & Social History Social History: household members none Prior Living Arrangements House Safety & Behavioral: Feels Safe in Current Yes Environment Been Physically Hurt or No Threatened By a Person Suicidal Ideation Description None Suicide Plan Description No Plan Tobacco & Substance use: Tobacco type cigarettes Smoking Status Former smoker alcohol intake current alcohol intake frequency a few times a month Substance Use Type does not use Meds Home Medications and Allergies Home Medications Medication Instructions Recorded Confirmed Type duloxetine 30 mg PO DAILY 03/25/19 08/03/19 History fluoxetine 40 mg PO QAM 03/25/19 08/03/19 History glimepiride 1 mg PO QAM 03/25/19 08/03/19 History lisinopril-hydrochlorothiazide 1 tab PO DAILY 03/25/19 08/03/19 History oxycodone 5 mg PO Q3HR PRN #1 tab 04/02/19 08/03/19 Rx ibuprofen 400 mg PO Q4HR PRN 08/03/19 08/03/19 History Allergies Allergy/AdvReac Type Severity Reaction Status Date / Time Penicillins Allergy Severe My veins Verified 08/05/19 09:58 got lumps in them - years ago vancomycin Allergy Severe Rash, Verified 08/05/19 09:58 instant itching diphenhydramine Allergy Verified 08/05/19 09:58 [From Benadryl] Review of Systems Review of Systems Narrative: No recent fever cough or chills Exam Vital Signs (past 8 hours): - 08/05/19 09:43 Temperature 98.9 F Pulse Rate 58 L Respiratory Rate 16 Blood Pressure 121/47 L Pulse Oximetry 97 Oxygen Delivery Method Room Air Narrative Exam Narrative: HEENT is benign, lungs are clear cor regular rate and rhythm abdomen soft and benign, right knee severe pain with range of motion range of motion 0-125 degrees tender to palpation along the medial joint line Verus deformity, skin intact the left knee well-healed scar range of motion 0-125? no pain with range of motion acceptable tracking of the patella Objective ECG Impression: Severe right knee osteoarthritis with varus deformity. The plan is for a right total knee arthroplasty. H& P is updated from previously there is no significant change she notes she has been feeling well and has done well after left total knee arthroplasty. She does have a history of fairly significant reaction to vancomycin but tolerated Ancef without significant difficulty with her last admission despite the penicillin allergy. I think it is reasonable to give her Ancef for prophylactic antibiotics. PAR discussed in detail. Labs Labs: X-rays show severe right knee osteoarthritis with varus deformity MRI scan confirms severe medial compartment arthritis
--- NOTE | 2019-08-05 10:24 | P.OP_ITS ---
Operative Date/Time/Diagnoses Date of procedure: 08/05/19 Time of procedure: 10:57 Pre-op diagnosis: Severe right knee osteoarthritis Post-op diagnosis: same Procedure & Clinicians Procedure: Right total knee arthroplasty Same procedure as scheduled: Yes Indications: The patient has had progressively worsening right knee pain with radiographic changes consistent with arthritis. Non-operative management has failed and the patient has requested total knee replacement. The risks, benefits and alternatives to surgery were discussed with the patient prior to proceeding. Risks discussed included, but were not limited to, failure to relieve pain, stiffness, infection, nerve damage, deep venous thrombosis, pulmonary embolism, stroke, coma, heart attack, permanent paralysis and , as well as the potential need for eventual revision of the prosthetic. Surgeon: Dea Laird Grounds Cleaner: Elieser Jones Anesthesia Type: General and Spinal Operative Notes Findings: Severe right knee osteoarthritis, good stability Closure Type: primary Specimen(s): none sent Prosthetic devices, grafts, tissues, transplants, or devices: Laird [employer] Nephew journey BCS 2 size 4 right femur, size 2 right tibia, +10 poly, 35 x 7.5 mm patella Applied: drain(s) Estimated Blood Loss (mL): 250 Tourniquet time (min): 78 Procedure in detail: The patient was seen in the pre-operative area, where the patient identified the right knee as the operative site and this was marked with my initials. The patient received pre-operative antibiotics, and was taken to the operating room and placed on the operative table in the supine position. After satisfactory anesthesia, a interactive multimedia designer out was performed. The right leg was encircled with a tourniquet about the proximal thigh, and the leg was prepared from the toes to the tourniquet with ChloroPrep in the usual fashion and draped through sterile drapes. The leg was elevated and exsanguinated with Eschmark bandage and the tourniquet inflated to [250] mmHg pressure. The knee was approached through an approximately 18 cm incision centered over the patella and carried into the knee through a medial parapatellar arthrotomy. A portion of the medial and lateral meniscus was resected. Soft tissue was carefully mobilized around the patella the patella was measured with a caliper. Bone was resected from the patella and the patellar height was reconstituted with up an appropriate sized patellar component. For a cover was then placed on the patella. A small amount of additional medial and lateral meniscus was resected. The visionary guide fit well to the distal femur. It looked like an appropriate distal femoral cut and the cut was made without difficulty. The rotation was assessed and the appropriate size femoral guide was placed on the distal femur and finishing cuts were made. There is no evidence of notching. The anterior, posterior and chamfer cuts were then made. The posterior osteophytes and soft tissues were then removed. The posterior capsule was injected with part of a mixture of 60 ml 0.25% Marcaine mixed with 20 ml Exparel for post operative pain control. The remainder of this mixture was injected into the capsule and subcutaneous tissues during cement curing. The tibia was prepared and the visionaire guide fit well to the distal tibia. The rotation was assessed. The patient was placed in extension residual medial and lateral meniscus as well as any residual bone was carefully resected. [No] additional tibia was resected. Hemostasis was achieved especially posteriorly. Additional local was injected into the posterior capsule. The extension gap was assessed and additional releases for gap balancing were performed as necessary. It was checked with the gap stock sheets cleaner inspector. The femoral component was trial was placed and the notch was finished. Trial tibial and femoral components were then placed and the knee placed through a range of motion. Range of motion was [0-130], with good stability throughout the range. The trials were then removed, and the tibia was finished. The bone was prepared with pulsatile lavage, and dried with a sponge. Cement was applied and the final prosthetics placed. Excess cement was removed during and after cement curing. A brief Betadine soak was performed. After confirming there was no extruded cement posteriorly, the final tibial insert was placed. The knee was copiously irrigated and the tourniquet deflated. Hemostasis was obtained with the Bovie cautery. A drain was placed and brought out superolaterally. The capsule was closed with interrupted # 1 black braided suture. The subcutaneous layer was closed with barbed sutures, and the skin with a running 3-0 V-Lock suture and Surgical glue. An Aquacel Ag dressing was applied and the patient was taken to recovery having tolerated the procedure well. Complications: none Post-operative Condition: stable Disposition: Acute Care Plan for aftercare: The patient will be maintained on a standard total knee replacement protocol with weight bearing as tolerated. The patient will receive Lovenox and sequential compression devices for DVT prophylaxis. The patient will be discharged home when safe for the home environment.
[2019-08-05] MEDS: MIDAZOLAM 2 MG/2 ML VIAL IV (10:29)
[2019-08-05] MEDS: fentaNYL 100 MCG/2 ML INJ 50 MCG IV (10:29)
--- NOTE | 2019-08-05 10:40 | SUR.PREOP ---
Block start time [1027] . Monitoring initiated and maintained throughout procedure. Oxygen and medications given per anesthesiologist instructions. Patient remained stable throughout procedure, no adverse reactions noted. Block end time [1035 ].
[2019-08-05] MEDS: CLINDAMYCIN 900 MG/50 ML PIGGYBACK 50 MG IV (10:50)
[2019-08-05] MEDS: TRANEXAMIC ACID 1,000 MG VIAL 2000 MG INJ ×2 (11:00→12:41)
[2019-08-05] MEDS: CEFAZOLIN 2 GM/100 ML FROZ.PIGGY IV ×2 (11:10→19:01)
[2019-08-05] MEDS: BUPIVACAINE 0.25% W/ EPI 30 ML VIAL 60 ML INJ (11:26)
[2019-08-05] MEDS: BUPIVACAINE LIPOSOME 266 MG/20 ML VIAL INJ (11:27)
--- NOTE | 2019-08-05 11:35 | SUR.OPER ---
Supine on padded OR bed. Pillow under head, arms secured on padded armboards <90 degree abduction. Safety belt across torso. Non-operative leg secured with tape over blanket over lower leg. Operative leg secured in DeMayo/Joel positioner. Foam padded brace at thigh of operative leg.
[2019-08-05] MEDS: LACTATED RINGERS 1,000 ML 100 ML IV (14:39)
[2019-08-05] MEDS: OXYCODONE IR 5 MG TABLET PO (14:40)
[2019-08-05] MEDS: ACETAMINOPHEN 325 MG TABLET 650 MG PO ×2 (14:40→22:23)
--- NOTE | 2019-08-05 14:48 | PC.NURSE ---
Addendum entered by Hailee Dockery R.N. 08/05/19 15:03: Starting to have pain in knee, po meds given about 20 mins ago and have been ineffective so far. Dr. Laird called through [facility] staff and they will make her aware. Original Note: Post-op Ortho: From [facility]. Awake, can feel rt leg, it is tingly, still has numbness. Has a hx of peripheral neuropathy bilat. Did decide to take an oxycodone. Trying to nap until PT get here to get her up for the first time. Admission completed. VSS, Dressing dry w/hemovac clamped. Pt did take part of a sandwich, no nausea. Cont w/poc.
[2019-08-05] MEDS: HYDROMORPHONE 2 MG TABLET PO ×2 (15:25→16:07)
[2019-08-05] MEDS: IBUPROFEN 400 MG TABLET PO ×2 (17:10→22:23)
[2019-08-05] MEDS: HYDROMORPHONE 4 MG TABLET PO ×2 (19:02→23:33)
[2019-08-05] MEDS: DOCUSATE 100 MG CAPSULE PO (22:23)
[2019-08-05] MEDS: ASPIRIN EC 81 MG TABLET PO (22:23)
[2019-08-06] MEDS: IBUPROFEN 400 MG TABLET PO ×3 (01:30→12:59)
[2019-08-06] MEDS: CEFAZOLIN 2 GM/100 ML FROZ.PIGGY IV (02:26)
[2019-08-06] MEDS: LACTATED RINGERS 1,000 ML 100 ML IV (03:58)
[2019-08-06 04:00] VITALS: BP 121/65; PULSE 63; RESP 16; TEMP 36.3; O2SAT 96
[2019-08-06 05:28] LABS: Hematocrit 29.5 % (36-46)
[2019-08-06 07:48] VITALS: BP 106/61; PULSE 67; RESP 16; TEMP 36.6; O2SAT 97
[2019-08-06] MEDS: ACETAMINOPHEN 325 MG TABLET 650 MG PO ×2 (07:56→13:00)
[2019-08-06] MEDS: DOCUSATE 100 MG CAPSULE PO (07:56)
[2019-08-06] MEDS: hydroCHLOROthiazide 25 MG TABLET PO (07:57)
[2019-08-06] MEDS: FLUoxetine 20 MG CAPSULE 40 MG PO (07:58)
[2019-08-06] MEDS: ASPIRIN EC 81 MG TABLET PO (07:59)
[2019-08-06] MEDS: lisinopriL 20 MG TABLET PO (08:00)
[2019-08-06] MEDS: GLIMEPIRIDE 2 MG TABLET 1 MG PO (08:15)
--- NOTE | 2019-08-06 08:28 | PM.PN.1 ---
Subjective Subjective Date Patient Seen: 08/06/19 Time Patient Seen: 08:29 Interval history: She had some problems with pain control overnight. She had some mild nausea it has improved. She notes that she feels reasonably well this morning. Exam Vital Signs (past 8 hours): - 08/06/19 04:00 08/06/19 07:48 Temperature 97.4 F L 97.9 F Pulse Rate 63 67 Respiratory Rate 16 16 Blood Pressure 121/65 106/61 Pulse Oximetry 96 97 Oxygen Delivery Method Room Air Oxygen Flow Rate 0 Narrative Exam Narrative: She is alert she is oriented she has good range of motion in her foot and ankle, her some calf to soft she is able to do an active straight leg raise. Dressing is dry, anticipated swelling Objective Labs Result Diagrams: 08/06/19 04:55 Labs: Laboratory Results - last 24 hr 08/06/19 04:55 Hgb 10.0 L Hct 29.5 L Assessment & Plan Assessment & Plan narrative: Doing well status post knee replacement plan is mobilize out of bed with physical therapy today. As long as she is able to get up and walk around with physical therapy and has adequate pain control is reasonable to discharge her to home today with plan for outpatient physical therapy.
--- NOTE | 2019-08-06 10:28 | PT.IIE ---
Current Diagnoses Unilateral primary osteoarthritis, right knee (08/05/19) Surgery Performed Operation Date: 08/05/19 11:00 Actual Procedures p Total Knee Arthroplasty(Right) - Dea Laird MD Surgical History (Last Reviewed 08/05/19 @ 10:20 by Dea Laird MD) H/O tooth extraction (Acute 07/2019) History of ankle surgery (Acute ~2009) History of arthroplasty of left knee (Acute 04/01/19) History of hysterectomy (Acute) Hx of bilateral cataract extraction (Acute ~2018) Hx of LASIK (Acute ~1997) Medical History (Last Reviewed 08/05/19 @ 10:20 by Dea Laird MD) Depression (Acute) Fibromyalgia (Acute) HTN (hypertension) (Acute) Neck pain (Acute) Neuropathy (Acute) Osteoarthritis (Acute) Pedal edema (Acute) Pre-diabetes (Acute) RLS (restless legs syndrome) (Acute) Physical Therapy Inpatient Evaluation/Re-Eval M1 PT/OT-IP Prior Functional Status Start: 08/06/19 13:58 Freq: NEEDED Status: Discharge Protocol: Document 08/06/19 10:28 AB (Rec: 08/06/19 14:13 AB [email or web address]) Medical Review Prior Functional Status Medical History Reviewed Yes Communication able to make needs known Mobility and Gait pt stated that she is modified independent with all mobilties and ambulation without AD but occasionally uses a SPC or her walking sticks depending on pain level Social History Household Members none Living Arrangements House Number of Floors (Floors) One Floor Number of Stairs To Enter/Railing? 2 steps with bilateral wide rails and can only hold on to one rail at a time Home Environment Standard Height Toilet,Walk in Shower,Built-In Shower Seat Home Equipment Front Wheel Walker,Straight Cane,Bedside Commode,Hand Held Shower Additional Social History Comment pt's friend will stay with pt to assist her M2 PT-IP Current Condition Start: 08/06/19 13:58 Freq: NEEDED Status: Discharge Protocol: Document 08/06/19 10:28 AB (Rec: 08/06/19 14:13 AB [email or web address]) Physical Therapy Current Condition Current Condition Evaluation Date 08/06/19 Treatment Diagnosis s/p R TKA; difficulty in walking Onset Date 08/05/19 Weight Bearing Status Weight Bearing Status Weight Bear as Tolerated Allowed Weight Bearing Amount (enter % WBAT RLE or #) (%) M3 PT-IP Subjective Start: 08/06/19 13:58 Freq: NEEDED Status: Discharge Protocol: Document 08/06/19 10:28 AB (Rec: 08/06/19 14:13 [email or web address]) Subjective Physical Therapy Visit Type Type Initial Evaluation Visit Start Time 10:28 Visit Stop Time 11:09 Total Visit Minutes 41 Number of QUANTITATIVE ANALYST MARKETING Visits 0 Physical Therapy Visit Comments Patient Comments pt agreeable to do PT Patient Goals to go home Therapy Pain Assessment Pain When Pain Assessed At Rest Pain Present Pain Present Pain Reported Location Right Knee Intensity 4 Scale Used Numeric (0 - 10) Pain Management Techniques Apply Cold,Modification of Treatment,Re-positioning, Timing of Activity with Medications M4 PT-IP Mobility and Gait Start: 08/06/19 13:58 Freq: NEEDED Status: Discharge Protocol: Document 08/06/19 10:28 AB (Rec: 08/06/19 14:13 [email or web address]) PT-Bed Mobility Assessment Supine to Sit Supine to Sit Standby Assistance Sit to Supine Sit to Supine Standby Assistance Scooting Scooting to Edge of Bed Standby Assistance PT-Transfer Assessment Sit to and From Stand Sit to and from Stand Standby Assistance,1 Person Assistance,Use of Upper Extremities Equipment Transfer Assistive Device Gait Belt,Front Wheeled Walker Orthotic/Prosthetic Devices or Brace: No Transfers Transfer Destination Chair,Toilet Transfer Technique ambulated using FWW Transfer Ability Level of Assist Standby Assistance,Contact Guard Assistance,1 Person Assistance,Use of Upper Extremities Comments Mobility Comments completed bed mobility supine to sit SBA. pt was able to sit on EOB SBA. pt requested to use the toilet. completed sit to stand SBA to CGA and ambulated to the toilet using FWW SBA to CGA. cued for safety and to slow down. completed sit to stand from the toilet SBA and ambulated to the sink SBA using FWW. pt was able to maintain standing leaning on counter for support while completing handwashing. pt ambulated in the hallway using FWW SBA to occasional CGA ~ [address] completed stair climbing. assisted back to bed. pt requested to go back to bed afterwards. completed sit to supine SBA. positioned pt in bed. call light and table placed within reach. Gait Assessment Gait Gait Assistance Required: Standby Assistance,Contact Guard Assist Distance (Feet) 125 Able to Maintain Weight Bearing Status Yes During Gait Assistive Devices Assistive Device Gait Belt,Front Wheeled Walker Orthotic/Prosthetic Devices or Brace: No Gait Deviations General Gait Pattern Antalgic Factors Limiting Gait Function Factors Limiting Gait Function Decreased Activity Tolerance, Decreased Strength,Limited Range of Motion,Pain,Poor Balance,Poor Safety Awareness Comments Gait Comments pls refer to mobility section for details Stair Climbing Assessment Evaluation Level of Assist On Stairs Standby Assistance,Contact Guard Assistance,1 Person Assistance Devices Stair Climbing Assistive Devices Straight Cane,Left Railing, Right Railing Technique/Endurance Stair Climbing Direction Ascend and Descend Stair Climbing Technique Step to Step Number of Steps Climbed 3 Query Text: Stair Climbing Set # Repetitions (reps) 1 Comments Stair Climbing Comments completed up/down steps using SPC and 1 rail SBA to CGA PT-Balance Assessment Sitting Balance and Reactions Static Sitting Balance Ability Good Dynamic Sitting Balance Ability Good Standing Balance and Reactions Static Standing Balance Ability Fair Dynamic Standing Balance Ability Fair Device Used FWW M5 PT-IP Objective Assessments Start: 08/06/19 13:58 Freq: NEEDED Status: Discharge Protocol: Document 08/06/19 10:28 AB (Rec: 08/06/19 14:13 AB [email or web address]) Orientation Orientation/Cognition Level of Alertness Alert Orientation Name,Place,Situation Language Function Ability No Deficits Noted Safety Awareness Decreased Safety Awareness Memory Description No Deficits Noted Gross Range of Motion Lower Extremity ROM Assessment Within Functional Limits Strength Lower Extremity Strength Assessment Within Functional Limits Coordination Assessment Gross Coordination Gross Coordination WNL Sensation Assessment Sensation Gross Sensation WNL Muscle Tone Muscle Tone WNL Yes M6 PT-IP Treatment Start: 08/06/19 13:58 Freq: NEEDED Status: Discharge Protocol: Document 08/06/19 10:28 AB (Rec: 08/06/19 14:13 AB [email or web address]) Physical Therapy Treatment Exercises Exercises Heel Slides Education Education Provided Precautions,Weight Bearing Status,Post-Op Packet,Safety M7 PT-IP Assessment and Plan Start: 08/06/19 13:58 Freq: NEEDED Status: Discharge Protocol: Document 08/06/19 10:28 AB (Rec: 08/06/19 14:13 AB [email or web address]) PT Summary Assessment and Plan Potential Rehabilitation Potential Good Status of Condition at Evaluation Stable Summary Impairments Pain,ROM,Strength,Balance,Tone ,Bed Mobility,Transfers,Gait, Activity Tolerance Assessment Summary pt requiring SBA to occasional CGA with mobility using FWW. pt plans to go home and her friend will stay with pt to assist her. pt just had L TKA last 2019 and caregiver training was conducted at that time with pt 's friend. Pt stated that her friend helped her at home afte L TKA surgery and will be able to assist again and does not think caregiver training is needed. pt stated that she is set up for outpt PT. Goals Bed Mobility Goal Independent Transfer Goal Independent,Front Wheeled Walker Gait Goal Independent,Front Wheel Walker Gait Distance 200 Other Goals up/down 2 steps SPC+ 1rail mod I Days to Meet Goals 3 Frequency of Treatment Frequency Of Treatment Twice a Day Treatment Plan Physical Therapy Treatment Plan Bed Mobility Training,Transfer Training,Gait Training, Therapeutic Exercise,Balance Retraining,Post Op Education, Discharge Planning,Hot or Cold Pack,Neuromuscular Re-ed, Coordination Retraining,Manual Therapy Recommendations To Nursing Amount of Assist Needed Standby Assistance Discharge Recommendations PT Discharge Recommendations Home with Assistance, Outpatient PT Transportation Needs at Discharge Private Vehicle
[2019-08-06] MEDS: HYDROMORPHONE 2 MG TABLET PO (11:08)
[2019-08-06 13:00] VITALS: BP 149/72; PULSE 73; RESP 18; TEMP 36.7; O2SAT 100
--- NOTE | 2019-08-06 14:06 | PC.NURSE ---
Discharge: Feels ready to d/c home. PT here and they gave pt their final instructions. MD here and she reviewed d/c instructions with pt. Rx given. Discharge packet reviewed, total knee precautions, questions answered. Pt is voiding w/out problems. po pain meds are controlling pain. Tolerates diet w/out problems. Pt d/c home via auto w/friend. Voiced no concerns at time of d/c home.
--- NOTE | 2019-08-06 14:44 | CM.DANOTE ---
Discharge Planning/Care Management DCP: assessment: case received and discussed in Team Rounds. PT was planning to see pt for first time today. A d/c order for home was placed by Dr. Laird. Pt is a 69 year old female who admitted yesterday for a scheduled R TKA (she L TKA in Mar of his year) Surgeon: Dr. Dotty Laird Payer: Medicare and AARP. [place] [facility] [place] Her pre-op plan is noted: plan for home with friend Chloé (who helped her after the Mar surgery) to assist and OUTPT PT. Went to room to check in with pt. She had worked with PT and been cleared for home setting and had left in company of her friend Chloé for her home in [place] earlier this afternoon. CM Discharge Assessment Start: 08/06/19 14:41 Freq: Status: Active Protocol: Document 08/06/19 14:41 ITV (Rec: 08/06/19 14:43 ITV [id number]) Discharge Planning Assessment Advance Directives? No History Provided By Medical Record Prior Living Arrangements House Household Members none Independent with ADL's Yes Is patient alert and oriented? Yes DME Already Rented / Owned Cane,Other Comment walking poles Patient/Family Preference OP PT Therapy Discharge Plan Home Transportation Arrangement Friend Review Status In Process Pre-Anesthesia Assessment Start: 08/03/19 09:55 Freq: Status: Complete Protocol: Document 08/03/19 09:55 CAB (Rec: 08/03/19 10:20 CAB [id number]) Pre-Anesthesia Assessment Patient Information Reviewed Via Phone Assessment Assessment Completed With Patient Diagnostic Results BMP/CMP,CBC,EKG,Urinalysis Comment Outside labs/EKG 07/21/19 scanned in, COVID @ 08/02/19 pending Primary Care Provider Maisha Jones Seen Specialist in Last 12 Months Yes Specialist Seen Orthopedist Primary Language Czech Preferred Language Czech Height 160.02 cm Weight 98.883 kg Body Mass Index (BMI) 38.6 Hearing Ability Normal Visual Assist Magnifying Glass Dentition Type Full- Upper Barriers to Learning None Other Aids No Hx Anesthesia Reactions No: Did not have spinal due to reaction to vanco, benadryl Additional comment Reaction to vanco, benadryl w/ LT TKA 04/01/19-See prev anesthesia record Hx Family Anesthesia Reaction No Hx Malignant Hyperthermia No Hx Blood Transfusions No Hx Blood Transfusion Reaction No Anesthesia Review Requested No alcohol intake current alcohol intake frequency a few times a month Smoking Status Former smoker Tobacco type cigarettes how long ago did patient quit smoking Quit 2009 Substance Use Type does not use Pain Present Pain Reported Musculoskeletal Symptoms Abnormal Gait,Difficulty Walking,Joint Pain,Limited Range of Motion,Neck Pain History of Falling (Recent or History of No ) Patient is completely paralyzed or No completely immobile Prosthesis or Orthotic Device Cane,Front Wheel Walker Is patient on oxygen? 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 No Cardiac Clearance Received Not Applicable Diet Type At Home Regular dysphagia No Bladder Pattern Frequency,Incontinent, Stress Urinary Catheter Present No Hx Urinary Self Catheterization No Diabetes No: Has been told pre-diabetes HgbA1C 6.8 Date 07/21/19 Patient No Lactating No Hx Drug Resistant Organism No Presence of External or Internal Medical Yes: Right ankle hardware, LT Devices TKA Have you had any close contact with No someone diagnosed with COVID-19? Marital Status Single Lives With none Prior Living Arrangements House Number of Floors (Floors) One Floor Number of Stairs To Enter/Railing? 2 steps Support System Friend(s) Patient Discharge Plan Description Return Home Feels Safe in Current Environment Yes Been Physically Hurt or Threatened By a No Person in Current Environment Do you have thoughts of harming yourself None or others? Are you currently considering suicide? No Do you have a plan to hurt yourself or No Plan others? Do You Have Any Spiritual Beliefs That No May Affect Your HC Choices? Do You Have Any Cultural Practices That No May Affect Your HC Choices? Who Can We Speak to About Patient's Care Family, friends Identifying Code for Release of Patient Declines to issue Information Health Care Proxy/Next of Kin Angella (Sister) Health Care Proxy Emergency Contact Name Chloé (friend) Emergency Contact Advance Directives? No Power of Delivery Architect No PAC Instructions Diabetes instructions,Durable medical equipment,Medications to take/avoid,Nasal antibiotic ,No ETOH/petroleum product on skin DOS,NPO,Post-op transportation,Pre-surgical wash,Sturdy shoes/comfortable clothes,Do not bring valuables and remove jewelry
== END 2019-08-06 13:00 | disposition home or self-care (01) ==
LOC: OR 09:09 → AC 09:12
PROVIDERS: PCP Physician Assistant Medical; Referring Provider Orthopaedic Surgery; Visit Provider Orthopaedic Surgery
PROC: 0SRC0JZ Replacement of Right Knee Joint with Synthetic Substitute, Open Approach (ICD-10-PCS; CPT 27447; principal; 2019-08-05 11:00)
DX: M17.11 Unilateral primary osteoarthritis, right knee (principal); M21.161 Varus deformity, not elsewhere classified, right knee; E66.9 Obesity, unspecified; I10 Essential (primary) hypertension; M79.7 Fibromyalgia; F32.9 Major depressive disorder, single episode, unspecified; R73.03 Prediabetes; G25.81 Restless legs syndrome
CPT/HCPCS: 27447; 36415; 64450; 73560; 85014; 85018; 97116; 97161; C1776; C9290; J0690; J2250; J3010

== ENCOUNTER → 2019-10-20 09:28 | Outpatient (CLI) | payer MEDICARE, SELFPAY ==
[2019-08-05 14:03] VITALS: BMI 38.6
--- NOTE | 2019-10-20 | DI.MRI.S_ITS ---
PROCEDURE: MR LUMBAR SPINE WO CON INDICATIONS: Low back pain TECHNIQUE: Noncontrast sagittal T1 spin echo and T2 fast echo, sagittal STIR, axial T1 and T2 fast spin echo through the lumbar spine. In cases with scoliosis, additional coronal T2 fast spin echo may be performed. COMPARISON: [facility], CR, XR LUMBAR SPINE 2 OR 3 VIEWS, 10/13/2019, 10:42. FINDINGS: Image quality: Excellent. Alignment and Curvature: 5 lumbar type vertebral bodies are present by plain film. Mild diffuse leftward curvature of the lumbar spine. Loss of normal lumbar lordosis. Mild grade 1 anterolisthesis of L5 on S1. Bone Marrow: Marrow is of normal overall signal. No acute vertebral body compression fractures. Mild reactive signal within the endplates adjacent to the L2-L3, L3-L4, L4-L5, and L5-S1 intervertebral discs. Spinal Cord: Conus medullaris terminates at the mid L1 level. Visualized cord demonstrates normal signal and size. Paraspinous Soft Tissues: No paravertebral masses. L1-L2: Mild disc height loss and desiccation. Mild diffuse disc bulge. Mild facet and ligamentum flavum hypertrophy. Mild epidural lipomatosis. Mild canal stenosis. No foraminal stenosis. L2-L3: Moderate disc height loss and desiccation. Mild diffuse disc bulge. Mild facet and ligamentum flavum hypertrophy. Mild epidural lipomatosis. Mild canal stenosis. Mild bilateral foraminal stenosis. L3-L4: Moderate disc height loss and desiccation. Mild diffuse disc bulge with superimposed broad-based right posterolateral protrusion. Mild facet and ligamentum flavum hypertrophy. Moderate epidural lipomatosis. Severe canal stenosis. Moderate bilateral foraminal stenosis. L4-L5: Moderate disc height loss and desiccation. Mild diffuse disc bulge. Mild facet and ligamentum flavum hypertrophy. Moderate epidural lipomatosis. Severe canal stenosis. Mild right and moderate left foraminal stenosis. L5-S1: Moderate disc height loss and desiccation. Mild diffuse disc bulge. Moderate facet and ligamentum flavum hypertrophy. Moderate epidural lipomatosis. Moderate canal stenosis. Mild right and moderate left foraminal stenosis. IMPRESSION: 1. Multilevel degenerative disc and facet disease, as well as ligamentum flavum hypertrophy and epidural lipomatosis. 2. Multilevel canal stenosis, worst at L3-L4, where there is severe canal stenosis. Moderate canal stenosis at L4-L5 and L5-S1. 3. Multilevel foraminal stenosis, worst at L3-L4, L4-L5, and L5-S1, where there are moderate foraminal stenoses. Dictated by: Rosetta Zapata M.D. on 10/20/2019 at 10:26 Approved by: Rosetta Zapata M.D. on 10/20/2019 at 10:29
== END ==
PROVIDERS: PCP Colon & Rectal Surgery; Referring Provider Colon & Rectal Surgery; Visit Provider Orthopaedic Surgery
DX: M54.5 Low back pain (principal); M51.36 Other intervertebral disc degeneration, lumbar region; M51.37 Other intervertebral disc degeneration, lumbosacral region; M48.061 Spinal stenosis, lumbar region without neurogenic claudication; M48.07 Spinal stenosis, lumbosacral region; E88.2 Lipomatosis, not elsewhere classified
CPT/HCPCS: 72148

== ENCOUNTER → 2023-05-26 14:00 | Outpatient (CLI) | payer MEDICARE, SELFPAY ==
[2019-08-05 14:03] VITALS: BMI 38.6
--- NOTE | 2023-05-27 22:28 | DI.NM.S_ITS ---
DATE OF SERVICE: 05/26/2023 PROCEDURE: Pharmacological perfusion study. INDICATIONS: Shortness of breath with underlying CAD, status post RCA stent in May 2021, with history of non-STEMI at that time, hypertension hyperlipidemia. RADIOPHARMACEUTICAL: 25.0 millicuries technetium-99m Myoview IV was injected at stress and 26.1 millicuries technetium-99m Myoview IV was injected at rest. CARDIAC STRESS: The patient underwent IV Lexiscan study under the supervision of an attending staff using standard protocol. The patient remained hemodynamically stable. Baseline blood pressure 132/84. Baseline rhythm sinus with mild sinus bradycardia with heart rate in the 50s. During stress, no convincing ischemic changes or arrhythmias seen. The patient had left armpit pain, which got improved in recovery. RAW DATA: The patient's weight is 220 pounds. Significant breast shadow seen. Increased gut activity affecting the inferior border of the heart as well. GATED STUDY: Resting LV ejection fraction 69% and stress LV ejection fraction is 74% without any obvious wall motion abnormalities. Resting end-diastolic volume 90 mL. TID ratio 1.0, which is within normal limits. Lung/heart ratio 0.33, which is within normal limits. MYOCARDIAL PERFUSION SCAN: Please note, this patient does not have stress prone images. Stress supine and resting supine images were compared to each other. It appears to be that patient has predominantly fixed, small to moderate size, mild to moderately decreased perfusion of base to mid inferior wall. In addition to that, the patient also has a moderate size, moderately decreased perfusion of distal anterior wall, which is also fixed. No significant reversible ischemia. Summed stress score and summed rest score is zero. CONCLUSION: 1. No obvious reversible ischemia. 2. Predominantly fixed, small to moderate size perfusion defect involving base to mid inferior wall as well as distal anterior wall. On raw images, significant breast shadow is seen, as well as gut affecting the inferior border of the heart. The patient weighed 220 pounds. No wall motion abnormalities. Preserved left ventricular function. Both anterior wall and inferior wall moving well. Hence, most likely we are dealing with tissue attenuation artifact. Correlate clinically. Overall, low-risk myocardial perfusion scan. RgLea - MATHEW/alethea/JOSE doc#: [id number]/job#: [id number] dd: 05/27/2023 16:31:00 dt: 05/27/2023 22:09:00 DICTATING MD/COPIES TO: Kajal Manuel MD COPIES MNE: LISA;
== END ==
PROVIDERS: PCP Registered Nurse; Referring Provider Internal Medicine Cardiovascular Disease; Visit Provider Internal Medicine Cardiovascular Disease
DX: I25.10 Atherosclerotic heart disease of native coronary artery without angina pectoris (principal); I25.2 Old myocardial infarction; R06.02 Shortness of breath; I10 Essential (primary) hypertension; E78.5 Hyperlipidemia, unspecified; Z95.5 Presence of coronary angioplasty implant and graft
CPT/HCPCS: 78452; 93017; A9502; J2785

== ENCOUNTER → 2023-05-27 12:19 | Outpatient (CLI) | payer MEDICARE, SELFPAY ==
[2019-08-05 14:03] VITALS: BMI 38.6
--- NOTE | 2023-05-27 12:21 | DI.ECHO.S_ITS ---
[facility] +---------+ [facility] +---------+ : : [address] : : : : [id number] : : : : Phone: [phone]---------+ Echocardiogram Report + + :Name: YAZAN VELAZQUEZ Study Date: 05/27/2023 Height: 62 in : :[facility] ReadingLocation: Weight: 215 lb : : Gender: Female BSA: 2.0 m2 : :: 1950 Age: 73 yrs BP: 138/88 mmHg: :Reason For Study: CORONARY ARTERY DISEASE : :Ordering Physician: GAMAL, : :UZMA Noyola Performed By: Ml Siddiqi : :Referring: UZMA TADEO : + + Interpretation Summary The ejection fraction is estimated to be 60-65%. Diastolic parameters suggest probable normal left ventricular diastolic function and normal filling pressures. The right ventricle is normal in size and function. There is mild mitral regurgitation. There is trace aortic regurgitation. Pulmonary artery pressures cannot be estimated because of the lack of a measurable TR jet velocity but the IVC suggests a CVP of around 3 mmHg. Compared to the prior study dated 05/22/2021, no significant change. Procedure: A two-dimensional transthoracic echocardiogram with color flow and Doppler was performed. The study quality was technically adequate. Comparison is made with the echocardiogram of 05/22/2021. The patient was in sinus rhythm with heart rates between 50-57 bpm during the exam. Left Ventricle: The left ventricle is normal in size and wall thickness. The ejection fraction is estimated to be 60-65%. Diastolic parameters suggest probable normal left ventricular diastolic function and normal filling pressures. Right Ventricle: The right ventricle is normal in size and function. Atria: The left atrial size is normal. Right atrial size is normal. There is no Doppler evidence for an interatrial shunt. Mitral Valve: The mitral valve is normal. There is mild mitral regurgitation. Aortic Valve: The aortic valve is trileaflet. The aortic valve opens well. There is no aortic valve stenosis. There is trace aortic regurgitation. Tricuspid Valve: The tricuspid valve is normal in structure and function. There is trace tricuspid regurgitation. Pulmonary artery pressures cannot be estimated because of the lack of a measurable TR jet velocity but the IVC suggests a CVP of around 3 mmHg. Pulmonic Valve: The pulmonic valve leaflets are thin and pliable; valve motion is normal. There is mild pulmonic regurgitation. Great Vessels: The aortic root is normal size. The dimensions of the ascending aorta are normal. The IVC is of normal diameter and collapses greater than 50% with a sniff. This suggests a low right atrial pressure of 3 mm Hg. Pericardium/ Pleura There is no pericardial effusion. There is no pleural effusion. MMode/2D Measurements & Calculations LVIDd: 5.4 cm LVOT diam: 2.0 cm LVIDs: 3.4 cm Ao root diam: 3.3 cm FS: 36.3 % asc Aorta Diam: 3.0 cm IVSd: 1.0 cm Ao Arch Diam (Prox Trans): 2.8 cm LVPWd: 1.2 cm LV adame. diameter/BSA (cm/m^2): 2.7 LV sys. diameter/BSA (cm/m^2): 1.7 LA A2 area: 15.8 cm2 RA long axis: 4.6 cm LA A4 area: 16.1 cm2 RA area: 12.8 cm2 LA length (vol): 4.7 cm RA vol: 30.1 ml LA vol: 45.7 ml RA : 15.3 ml/m2 LA vol index: 23.2 ml/m2 IVC diam: 0.83 cm RVD1 (basal): 3.4 cm RVD2 (mid): 3.0 cm TAPSE: 1.8 cm Doppler Measurements & Calculations Ao V2 max: 154.6 cm/sec LVOT Max Kendell: 131.1 cm/sec Ao V2 mean: 102.4 cm/sec LV V1 max P.9 mmHg Ao max P.6 mmHg LV V1 VTI: 31.1 cm Ao mean P.7 mmHg ASHLEE(I,D): 3.0 cm2 Ao V2 VTI: 33.4 cm ASHLEE(V,D): 2.7 cm2 sev ratio: 0.93 ASHLEE indexed to BSA (cm^2/m^2): 1.5 MV E max kendell: 71.7 cm/sec PA V2 max: 113.0 cm/sec MV A max kendell: 73.8 cm/sec PA V2 mean: 79.3 cm/sec MV E/A: 0.97 PA mean P.8 mmHg Med Peak E' Kendell: 4.8 cm/sec PA pr(Accel): 22.5 mmHg E/E' med: 15.0 Lat Peak E' Kendell: 9.1 cm/sec E/E' lat: 7.9 E/e' average: 11.4 MV dec time: 0.21 sec SV(LVOT): 98.4 ml Reading Physician:08:21 PM
== END ==
LOC: ECHO 12:20
PROVIDERS: PCP Registered Nurse; Referring Provider Internal Medicine Cardiovascular Disease; Visit Provider Internal Medicine Cardiovascular Disease
DX: I34.0 Nonrheumatic mitral (valve) insufficiency (principal); I37.1 Nonrheumatic pulmonary valve insufficiency; I25.10 Atherosclerotic heart disease of native coronary artery without angina pectoris
CPT/HCPCS: 93306